=== PATIENT | male | born 1995 | race Caucasian/White ===

== ENCOUNTER 2017-06-18 19:50 | Emergency (ER) | payer BC ==
--- NOTE | 2017-06-18 20:16 | EDM.PDOC ---
ED HPI GENERAL MEDICAL PROBLEM - General Chief Complaint: Fever Stated Complaint: FEVER/SORE THROAT/WEAKNESS Time Seen by Provider: 06/18/17 20:06 Source of Information: Reports: Patient, Family History Limitations: Reports: No Limitations - History of Present Illness INITIAL COMMENTS - FREE TEXT/NARRATIVE: Presents to the ER with his mother. The patient states that he has had a subjective fever with chills headache and sore throat and body aches for the last 24 hours. He is otherwise healthy without chronic medical problems. He did not have a flu shot. He has a roommate that had the flu throat Pain Score (Numeric/FACES): 6 - Related Data Allergies Allergy/AdvReac Type Severity Reaction Status Date / Time No Known Allergies Allergy Verified 06/18/17 20:25 Home Meds: Home Meds . [No Known Home Meds] 06/18/17 [History] ED ROS ENT - Review of Systems Review Of Systems: ROS reveals no pertinent complaints other than HPI. ED EXAM, ENT - Physical Exam Exam: See Below Exam Limited By: No Limitations General Appearance: Alert, No Apparent Distress Ears: Normal External Exam, Normal Canal, Normal TMs Nose: Normal Inspection Mouth/Throat: Normal Inspection, Pharyngeal Erythema (mild) Head: Atraumatic, Normocephalic Neck: Normal Inspection Respiratory/Chest: No Respiratory Distress, Lungs Clear, Normal Breath Sounds Cardiovascular: Normal Peripheral Pulses, Regular Rate, Rhythm, No Murmur Extremities: Normal Inspection Neurological: Alert, Oriented Psychiatric: Normal Affect, Normal Mood Skin: Warm, Normal Color, Other (hot and sweaty) Lymphatic: No Adenopathy Course - Vital Signs Last Recorded V/S: Last Vital Signs Temp 37.7 C 06/18/17 20:25 Pulse 115 H 06/18/17 20:25 Resp 18 06/18/17 20:25 BP 145/67 H 06/18/17 20:25 Pulse Ox 98 06/18/17 20:25 - Orders/Labs/Meds Orders: Active Orders 24 hr Category Date Time Status CULTURE STREP A CONFIRMATION [RM] Stat Lab 06/18/17 20:25 Results STREP SCRN A RAPID W CULT CONF [] Stat Lab 06/18/17 20:14 Ordered Departure - Departure Time of Disposition: 21:11 Disposition: Home, Self-Care 01 Condition: Good Clinical Impression: Fever - Discharge Information Referrals: PCP,None [Primary Care Provider] - [facility] [Outside] [facility] [Outside] Forms: ED Department Discharge Additional Instructions: 1. Drink plenty of fluids and rest. 2. Tylenol 1 gram three times daily for fever and body aches as needed. 3. Follow up in clinic. - My Orders Last 24 Hours: My Active Orders 06/18/17 20:14 STREP SCRN A RAPID W CULT CONF [RM] Stat 06/18/17 20:25 CULTURE STREP A CONFIRMATION [RM] Stat - Assessment/Plan Last 24 Hours: My Active Orders 06/18/17 20:14 STREP SCRN A RAPID W CULT CONF [RM] Stat 06/18/17 20:25 CULTURE STREP A CONFIRMATION [RM] Stat
== END 2017-06-18 21:20 | disposition home or self-care (01) ==
LOC: MW.ED 19:50
DX: R50.9 Fever, unspecified (principal)
CPT/HCPCS: 87081; 87804; 87880; 99282; 99283

== ENCOUNTER 2018-11-02 04:24 | Emergency (ER) | payer BC ==
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
== END 2018-11-02 05:24 | disposition home or self-care (01) ==
LOC: MW.ED 04:24
DX: S01.512A Laceration without foreign body of oral cavity, initial encounter (principal); F17.210 Nicotine dependence, cigarettes, uncomplicated; Y04.0XXA Assault by unarmed brawl or fight, initial encounter
CPT/HCPCS: 41252; 99282; J2001